=== PATIENT | male | born 1930 | race Caucasian/White ===

== ENCOUNTER → 2017-09-24 | Outpatient (CLI) | payer OTHER | END | disposition home or self-care (01) | LOC: WOUND MED 14:41 → EDSTATUS 14:42 | DX: L97.811 Non-pressure chronic ulcer of other part of right lower leg limited to breakdown of skin (principal) | CPT/HCPCS: A4554; A4930; A6216; A6219; G0463 ==

== ENCOUNTER → 2017-10-01 | Outpatient (CLI) | payer OTHER | END | disposition home or self-care (01) | LOC: WOUND MED 08:00 | DX: L97.811 Non-pressure chronic ulcer of other part of right lower leg limited to breakdown of skin (principal) | CPT/HCPCS: G0463; A4554; A4930; A6216 ==

== ENCOUNTER 2018-03-02 14:53 | Outpatient (CLI) | payer OTHER | END 2018-03-02 15:00 | disposition home or self-care (01) | LOC: NUCLEAR 14:53 | DX: M81.0 Age-related osteoporosis without current pathological fracture (principal) ==

== ENCOUNTER 2018-04-16 14:42 | Outpatient (CLI) | payer OTHER | END 2018-04-16 14:46 | disposition home or self-care (01) | LOC: RAD 14:42 | DX: M75.102 Unspecified rotator cuff tear or rupture of left shoulder, not specified as traumatic (principal); M75.101 Unspecified rotator cuff tear or rupture of right shoulder, not specified as traumatic ==

== ENCOUNTER 2018-04-22 09:51 | Outpatient (CLI) | payer OTHER | END 2018-04-22 09:57 | disposition home or self-care (01) | LOC: SONOGRAMA 09:51 | DX: M25.512 Pain in left shoulder (principal); M75.102 Unspecified rotator cuff tear or rupture of left shoulder, not specified as traumatic ==

== ENCOUNTER 2018-04-30 15:30 | Outpatient (CLI) | payer OTHER | END 2018-04-30 15:52 | disposition home or self-care (01) | LOC: RAD 15:30 | DX: S59.902A Unspecified injury of left elbow, initial encounter (principal) ==

== ENCOUNTER 2018-05-27 15:17 | Outpatient (CLI) | payer OTHER | END 2018-05-27 16:37 | disposition home or self-care (01) | LOC: TOM 15:17 | DX: F01.50 Vascular dementia, unspecified severity, without behavioral disturbance, psychotic disturbance, mood disturbance, and anxiety (principal) ==

== ENCOUNTER 2018-06-02 09:42 | Outpatient (CLI) | payer OTHER | END 2018-06-02 09:52 | disposition home or self-care (01) | LOC: NUCLEAR 09:42 | DX: G45.1 Carotid artery syndrome (hemispheric) (principal) ==

== ENCOUNTER 2018-06-18 13:30 | Outpatient (CLI) | payer OTHER | END 2018-06-18 13:49 | disposition home or self-care (01) | LOC: LAB 13:30 | DX: E53.8 Deficiency of other specified B group vitamins (principal) ==

== ENCOUNTER → 2018-07-31 | Outpatient (CLI) | payer OTHER | END | disposition home or self-care (01) | LOC: WOUND MED 10:14 | DX: L97.821 Non-pressure chronic ulcer of other part of left lower leg limited to breakdown of skin (principal) | CPT/HCPCS: G0463; A4554; A4930; A6216 ==

== ENCOUNTER → 2019-03-03 | Outpatient (CLI) | payer OTHER | END | disposition home or self-care (01) | LOC: TOM 14:39 | DX: M54.15 Radiculopathy, thoracolumbar region (principal) ==

== ENCOUNTER → 2019-03-30 | Outpatient (CLI) | payer OTHER | END | disposition home or self-care (01) | LOC: WOUND MED 11:53 | DX: L98.492 Non-pressure chronic ulcer of skin of other sites with fat layer exposed (principal) | CPT/HCPCS: 11042; G0463; A4554; A4930; A6216; A6219 ==

== ENCOUNTER → 2019-04-06 | Outpatient (CLI) | payer OTHER | END | disposition home or self-care (01) | LOC: WOUND MED 10:57 | DX: L98.492 Non-pressure chronic ulcer of skin of other sites with fat layer exposed (principal) | CPT/HCPCS: 11042; A4554; A4930; A6216; A6219 ==

== ENCOUNTER → 2019-04-13 | Outpatient (CLI) | payer OTHER ==
[~2019-04-13] MED LIST: ASPIR 8181 MG PO; LISINOPRIL2.5 MG PO
== END | disposition home or self-care (01) ==
LOC: WOUND MED 10:00
DX: L98.492 Non-pressure chronic ulcer of skin of other sites with fat layer exposed (principal)
CPT/HCPCS: G0463; A4554; A4930; A6216

== ENCOUNTER 2019-05-07 17:46 | Emergency (ER) | payer OTHER ==
[~2019-05-07] VITALS: Ht 177.8 cm; Wt 70.3 kg
[2019-05-07] MEDS ORDERED: LISINOPRIL2.5 MG PO (18:08)
[2019-05-07] MEDS ORDERED: ASPIR 8181 MG PO (18:08)
== END 2019-05-07 21:43 | disposition home or self-care (01) ==
LOC: ER 17:46 → CPU-OBS 18:03 → ER 21:43
DX: R10.13 Epigastric pain (principal); R07.89 Other chest pain

== ENCOUNTER 2019-06-01 10:19 | Outpatient (CLI) | payer OTHER | END 2019-06-01 10:54 | disposition home or self-care (01) | LOC: TOM 10:19 | DX: M47.893 Other spondylosis, cervicothoracic region (principal); M51.34 Other intervertebral disc degeneration, thoracic region ==

== ENCOUNTER 2019-07-02 14:24 | Outpatient (CLI) | payer OTHER | END 2019-07-02 15:04 | disposition home or self-care (01) | LOC: TOM 14:24 | DX: M51.85 Other intervertebral disc disorders, thoracolumbar region (principal) ==

== ENCOUNTER 2019-09-06 18:18 | Emergency (ER) | payer OTHER ==
[~2019-09-06] VITALS: Ht 172.7 cm; Wt 81.6 kg
== END 2019-09-06 22:54 | disposition home or self-care (01) ==
LOC: ER 18:18
DX: S00.03XA Contusion of scalp, initial encounter (principal); W18.09XA Striking against other object with subsequent fall, initial encounter; Y93.89 Activity, other specified; Y92.481 Parking lot as the place of occurrence of the external cause; Y99.8 Other external cause status

== ENCOUNTER 2019-09-07 14:40 | Emergency (ER) | payer OTHER ==
[~2019-09-07] VITALS: Ht 177.8 cm; Wt 81.6 kg
== END 2019-09-07 21:15 | disposition home or self-care (01) ==
LOC: ER 14:40
DX: S00.83XA Contusion of other part of head, initial encounter (principal); S40.012A Contusion of left shoulder, initial encounter; S40.011A Contusion of right shoulder, initial encounter; S80.02XA Contusion of left knee, initial encounter; S80.01XA Contusion of right knee, initial encounter; W18.39XA Other fall on same level, initial encounter; Y93.89 Activity, other specified; Y92.098 Other place in other non-institutional residence as the place of occurrence of the external cause; Y99.8 Other external cause status

== ENCOUNTER 2019-09-15 11:27 | Outpatient (CLI) | payer OTHER | END 2019-09-15 12:15 | disposition home or self-care (01) | LOC: WOUND MED 11:27 | DX: L97.812 Non-pressure chronic ulcer of other part of right lower leg with fat layer exposed (principal) | CPT/HCPCS: G0463; A4554; A4930; A6216; A6219 ==

== ENCOUNTER 2019-09-22 14:09 | Outpatient (CLI) | payer OTHER | END 2019-09-22 14:30 | disposition home or self-care (01) | LOC: WOUND MED 14:09 | DX: L97.812 Non-pressure chronic ulcer of other part of right lower leg with fat layer exposed (principal) | CPT/HCPCS: 97602; A4554; A4930; A6216; A6219 ==

== ENCOUNTER 2019-09-29 11:47 | Outpatient (CLI) | payer OTHER | END 2019-09-29 12:21 | disposition home or self-care (01) | LOC: WOUND MED 11:47 | DX: L97.812 Non-pressure chronic ulcer of other part of right lower leg with fat layer exposed (principal) | CPT/HCPCS: A4554; A4930; A6216; G0463 ==

== ENCOUNTER 2019-10-11 13:50 | Outpatient (CLI) | payer OTHER | END 2019-10-11 14:30 | disposition home or self-care (01) | LOC: RAD 13:50 | DX: M25.561 Pain in right knee (principal) ==

== ENCOUNTER 2020-02-12 13:56 | Emergency (ER) | payer OTHER ==
[~2020-02-12] VITALS: Ht 175.3 cm; Wt 71.7 kg
== END 2020-02-12 18:01 | disposition home or self-care (01) ==
LOC: ER 13:56
DX: G45.8 Other transient cerebral ischemic attacks and related syndromes (principal)